=== PATIENT | male | born 1980 | race Caucasian/White ===

== ENCOUNTER 2019-04-21 13:22 | Emergency (ER) | payer BC ==
--- NOTE | 2019-04-21 14:45 | EDM.PDOC ---
ED HPI GENERAL MEDICAL PROBLEM - General Chief Complaint: Back Pain or Injury Stated Complaint: BACK PAIN Time Seen by Provider: 04/21/19 14:17 Source of Information: Reports: Patient, RN Notes Reviewed - History of Present Illness INITIAL COMMENTS - FREE TEXT/NARRATIVE: 38 yr old male has been having low back pain for about 10 to 14 days. No known acute injury. was on some prednisone last week and has also been taking flexeril. States that must makes him sleepy. Just had an MRI a short time ago. Pain does radiate down post thigh of both legs some of the time. Pain is worse with motion. No fever or chills. No abd pain, nausea or vomiting. Bilateral Lower Back Pain Score (Numeric/FACES): 8 - Related Data Allergies Allergy/AdvReac Type Severity Reaction Status Date / Time No Known Allergies Allergy Verified 04/21/19 14:21 Home Meds: Home Meds Naproxen [Naprosyn] 500 mg PO Q12HR #14 tab 04/21/19 [Rx] Omeprazole Magnesium [Prilosec Otc] 20 mg PO DAILY 04/21/19 [History] predniSONE [Prednisone] 50 mg PO DAILY #6 tablet 04/21/19 [Rx] traMADol [Ultram] 50 mg PO Q6H PRN #20 tab 04/21/19 [Rx] Past Medical History Gastrointestinal History: Reports: GERD Social & Family History - Tobacco Use Smoking Status *Q: Never Smoker - Caffeine Use Caffeine Use: Reports: None - Recreational Drug Use Recreational Drug Use: No ED ROS GENERAL - Review of Systems Review Of Systems: See Below Constitutional: Denies: Fever, Chills HEENT: Reports: No Symptoms Respiratory: Denies: Shortness of Breath Cardiovascular: Denies: Chest Pain GI/Abdominal: Denies: Abdominal Pain, Nausea, Vomiting : Reports: No Symptoms Musculoskeletal: Reports: Back Pain, Leg Pain Skin: Denies: Rash Neurological: Denies: Numbness, Tingling, Weakness ED EXAM,LOWER BACK PAIN/INJURY - Physical Exam Exam: See Below General Appearance: Alert, Mild Distress Eye Exam: Bilateral Eye: PERRL Head: Atraumatic. No: Facial Swelling Neck: Supple, Full Range of Motion Respiratory/Chest: No Respiratory Distress, Lungs Clear, Normal Breath Sounds Cardiovascular: Regular Rate, Rhythm GI/Abdominal: Soft, Non-Tender Back Exam: No: CVA Tenderness (L), CVA Tenderness (R), Paraspinal Tenderness, Vertebral Tenderness Extremities: Normal Inspection, Normal Range of Motion. No: Pedal Edema, Leg Pain, Increased Warmth, Redness Neurological: Alert, No Motor/Sensory Deficits, Oriented x 3, Other (pain with SLR L greater than R) Course - Vital Signs Last Recorded V/S: Last Vital Signs Temp 98.3 F 04/21/19 14:16 Pulse 102 H 04/21/19 14:16 Resp 16 04/21/19 14:16 BP 125/86 04/21/19 14:16 Pulse Ox 98 04/21/19 14:16 Departure - Departure Time of Disposition: 14:50 Disposition: Home, Self-Care 01 Condition: Fair Clinical Impression: Back pain Qualifiers: Back pain location: low back pain Chronicity: acute Sciatica presence: with sciatica - Discharge Information Prescriptions: Naproxen [Naprosyn] 500 mg PO Q12HR #14 tab predniSONE [Prednisone] 50 mg PO DAILY #6 tablet traMADol [Ultram] 50 mg PO Q6H PRN #20 tab PRN Reason: Pain Instructions: Acute Back Pain, Adult Referrals: PCP,None [Primary Care Provider] - Forms: ED Department Discharge Additional Instructions: rest back, avoid heavy lifting, alternate ice and heat as needed,Naprosyn 500 mg twice daily for pain and inflammation, 50 mg daily starting today and then for the next 5 days. After today take that in the morning. You can also take Tylenol in addition up to 3 times daily for extra pain relief. Tramadol 50 mg every 6-8 hours if needed for severe pain not relieved by the above measures. Try not to take tramadol when working, especially if it does make you drowsy in any way although usually drowsiness with this medication is not a problem for most people. Follow-up with your regular provider or occupational health one week for recheck. The expectation is that these bulging disc problems do heal with time and non-aggravation of the injury. Sepsis Event Note - Evaluation Sepsis Screening Result: No Definite Risk - Focused Exam Date Exam was Performed: 04/27/19 Time Exam was Performed: 09:23
== END 2019-04-21 15:15 | disposition home or self-care (01) ==
LOC: JD.ED 13:22
DX: M54.41 Lumbago with sciatica, right side (principal); M54.42 Lumbago with sciatica, left side; K21.9 Gastro-esophageal reflux disease without esophagitis; Z79.899 Other long term (current) drug therapy
CPT/HCPCS: 99283